=== PATIENT | male | born 1970 | race Caucasian/White ===

== ENCOUNTER 2025-04-29 18:09 | Emergency (ER) | payer OTHER ==
[~2025-04-29] VITALS: Ht 182.9 cm; Wt 120.2 kg
[2025-04-29] MEDS ORDERED: Lidocaine 4% 1 Patch TOP ONE (18:15)
[2025-04-29] MEDS ORDERED: Morphine Sulfate 4 MG/1 ML Injection IV ONE (18:15)
[2025-04-29] MEDS ORDERED: Ketorolac Tromethamine 15mg Vial IV ONE (18:15)
[2025-04-29] MEDS ORDERED: HYDROcodone 5-APAP 325 TAB PO ONE (18:30)
[2025-04-29] MEDS ORDERED: RX Prepack 6 Tabs Oxycodone 5mg UD ONE (21:45)
== END 2025-04-29 22:08 | disposition home or self-care (01) ==
LOC: ER 18:09
DX: M25.561 Pain in right knee (principal); X58.XXXA Exposure to other specified factors, initial encounter
CPT/HCPCS: 73562-RT; 99283-25; A9270